=== PATIENT | male | born 1940 | race Hispanic/Latino ===

== ENCOUNTER 2021-05-14 20:02 | Emergency (ER) | payer SELFPAY ==
[2021-05-14 20:50] LABS: ALT (SGPT) 18 U/L (8-55); AST (SGOT) 21 U/L (5-34); Albumin 4.3 g/dL (3.4-4.8); Alkaline Phosphatase 112 U/L (40-110); Anion Gap 15 mmol/L (10-20); BUN (Urea Nitrogen) 19 mg/dL (8.4-25.7); Bilirubin, Total 0.7 mg/dL (0.2-1.2); Calc. Creatinine Clearance 0 mL/min (70-130); Calcium 9.8 mg/dL (7.8-10.44); Carbon Dioxide 24 mmol/L (23-31); Chloride 105 mmol/L (98-107); Globulin 3.1 g/dL (2.4-3.5); Glucose 106 mg/dL (83-110); Potassium 4.1 mmol/L (3.5-5.1); Protein, Total 7.4 g/dL (5.8-8.1); Sodium 140 mmol/L (136-145)
[2021-05-14 20:58] LABS: #Basophils 0.1 thou/uL (0.0-0.2); #Eosinphils 0.1 thou/uL (0.0-0.7); #Monocytes 0.9 thou/uL (0.11-0.59); %Basophils 0.8 % (0.0-1.0); %Eosinophils 0.8 % (0.0-10.0); %Lymphocytes 39.8 % (21.0-51.0); %Monocytes 8.9 % (0.0-10.0); %Neutrophils 49.7 % (42.0-75.0); Hemoglobin 14.8 g/dL (14.0-18.0); INR-International Normal Ratio 0.9; Mean Corpuscular HGB CONC 32.1 g/dL (32.0-36.0); Mean Corpuscular Hemoglobin 29.5 pg (27.0-31.0); Mean Corpuscular Volume 91.7 fL (78.0-98.0); Mean Platelet Volume 6.5 fL (7.4-10.4); Platelet Count 312 thou/uL (130-400); Prothrombin Time 12.3 sec (12.0-14.7); RBC Distribution Width 12.1 % (11.5-14.5); Red Blood Cell (RBC) Count 5.02 mill/uL (4.70-6.10)
[2021-05-14] MEDS ORDERED: Aspirin Chewable 81 MG TAB ONE (21:07)
[2021-05-14] MEDS ORDERED: Sodium Chloride 0.9% 100 ML ONE (21:10)
[2021-05-14] MEDS ORDERED: cefTRIAXone\\ROCEPHIN 1 GM VIAL ONE (21:10)
[2021-05-14 21:17] LABS: SARS-CoV-2 NAA Rapid Test Not Detected (NotDetected)
== END 2021-05-14 22:06 | disposition short-term general hospital (02) ==
LOC: NAV ERS 20:02
DX: K04.7 Periapical abscess without sinus (principal); R29.810 Facial weakness; Z20.822 Contact with and (suspected) exposure to COVID-19
CPT/HCPCS: 36416; 70450; 80053; 84484; 85025; 85610; 93005; 96365; J0696; J3490; U0002